=== PATIENT | female | born 1955 | race Caucasian/White ===

== ENCOUNTER → 2021-04-09 12:33 | Outpatient (CLI) | payer MEDICARE, OTHER, SELFPAY | PROVIDERS: PCP Internal Medicine; Referring Provider Internal Medicine; Visit Provider Internal Medicine | DX: Z78.0 Asymptomatic menopausal state (principal); M85.88 Other specified disorders of bone density and structure, other site | CPT/HCPCS: 77080 ==

== ENCOUNTER → 2021-04-27 14:49 | Outpatient (CLI) | payer MEDICARE, OTHER, SELFPAY ==
--- NOTE | 2021-04-27 14:51 | DI.MG.S_ITS ---
BILATERAL DIGITAL SCREENING MAMMOGRAM 3D/2D WITH CAD: 04/27/2021 CLINICAL: Routine screening. Family history of breast cancer. Comparison is made to exams dated: 06/15/2016 mammogram, 06/23/2015 mammogram, and 08/29/2013 mammogram - outside location. There are scattered fibroglandular elements in both breasts. Current study was also evaluated with a Computer Aided Detection (CAD) system. There are benign calcifications in the left breast. No significant masses, calcifications, or other findings are seen in either breast. There has been no significant interval change. IMPRESSION: BENIGN There is no mammographic evidence of malignancy. A 1 year screening mammogram is recommended. This exam was interpreted at Station ID: [id number]. NOTE: For mammograms, a report in lay terms will be sent to the patient. Approximately 15% of breast malignancies will not be visualized mammographically. In the management of a palpable breast mass, a negative mammogram must not discourage biopsy of a clinically suspicious lesion. Electronically Signed By: Nestor [email or web address]:04/27/2021 16:33:25 letter sent: Normal Exam ACR BI-RADS Category 2: Benign Finding(s) 3342F
== END ==
PROVIDERS: PCP Internal Medicine; Referring Provider Internal Medicine; Visit Provider Internal Medicine
DX: Z12.31 Encounter for screening mammogram for malignant neoplasm of breast (principal); Z80.3 Family history of malignant neoplasm of breast
CPT/HCPCS: 77063; 77067

== ENCOUNTER 2021-06-30 13:30 | Outpatient (RCR) | payer MEDICARE, OTHER, SELFPAY ==
--- NOTE | 2021-05-13 16:17 | PT.OIE ---
Current Diagnoses Cystocele, lateral (05/13/21) Visit Care Team Role Provider Type Annmarie Waterman MD Attending Provider Physician Primary Care Provider Referring Provider Specialty: Internal Medicine Address: [address] [place] [address], [facility] Email: [email or web address] Physical Therapy Initial Evaluation PT-OP-A Visit Information Start: 05/13/21 14:20 Freq: Status: Active Protocol: Document 05/13/21 14:15 AMB (Rec: 05/13/21 16:17 AMB [email or web address]) Out-Patient Physical Therapy Visit Information Visit Information Visit Type Initial Evaluation Visit Start Time 14:15 Visit Stop Time 15:00 Total Visit Minutes 45 Visit Number 1 PT-OP-B Current Condition Start: 05/13/21 14:20 Freq: Status: Active Protocol: Document 05/13/21 14:15 AMB (Rec: 05/13/21 16:16 AMB [email or web address]) Current Condition History of Current Condition Onset Date Chronic- unsure onset Current Complaints Difficulty voiding urine History of Current Condition Pauline was having to strain to completely empty her bladder and developed hemorrhoids and then a hernia. She was also having some leaking but has since cut back on caffeine and that was really helpful. She thinks she voids every 2-3 hours and urinates for about 10-15 seconds, then stands up and gets a trickle to come out . She denies pelvic heaviness or burning with urination. Denies painful intercourse history. She denies constipation or chronic cough. Did have one vaginal delivery of a premature infant , denies prolonged pushing. Treatment Goals Patient/Caregiver Goals Feel like fully voiding bladder. Personal Factors Other Personal Factors That May Effect Hernia surgery in [place] Therapy/Recovery PT-OP-C Subjective Start: 05/13/21 14:20 Freq: Status: Active Protocol: Document 05/13/21 14:15 AMB (Rec: 05/13/21 16:16 AMB [email or web address]) Patient Questionnaires Pelvic Pain and Urgency/Frequency Patient Symptom Scale Pelvic Pain Score 4 PT-OP-I Pelvic Floor Start: 05/13/21 14:20 Freq: Status: Active Protocol: Document 05/13/21 14:15 AMB (Rec: 05/13/21 16:16 AMB [email or web address]) Pelvic Floor Assessment Urine Pelvic Floor Surgery No Urinary Symptoms Dribbling After Urination, Incomplete Emptying Leakage Size Small Voiding Frequency 2-3 hours Nocturia 0 Urine Pad Type Panty Liner Bowel Bowel Surgery No Prolapse Cystocele Grade 1 Rectocele Grade 1 Prolapse Comments Pt with significant difficulty bearing down Contraction Ability Voluntary Contraction Absent Voluntary Relaxation Weak Manual Muscle Testing Left 1 Manual Muscle Testing Right 1 Manual Muscle Testing Anterior 1 Manual Muscle Testing Posterior 1 Muscle Endurance (Seconds) 2 Number of Quick Contractions In 10 3 Seconds Comments Pelvic Floor Comments Very difficult to palpate contraction PT-OP-T Assessment and Plan Start: 05/13/21 14:20 Freq: Status: Active Protocol: Document 05/13/21 14:15 AMB (Rec: 05/13/21 16:16 AMB [email or web address]) Physical Therapy Assessment Rehab Potential Rehabilitation Potential Good Evaluation Complexity Number of Personal Factors/Comorbidities 0 Number of Body Systems Impaired 1-2 Clinical Presentation at Evaluation Stable Impairments Impairments Strength Goals Two Impairment Voiding Residential Goal (LTG) Pauline will void her bladder without feeling the need to push. LTG Duration 8 weeks One Impairment Pelvic floor strength Short Term Goal (STG) Pauline will be independent and consistent with a HEP to improve her pelvic floor strength. STG Duration 4 weeks Continuous Pickling Line Pickler Goal (LTG) Pauline will be able to contract her pelvic floor for 10 seconds in standing without compensating with other muscles. LTG Duration 8 weeks Assessment Summary Assessment Pauline attends physical therapy with difficulty voiding urine completely, she feels there is more urine to void when she is done and needs to move around on the toilet or stand, and then a little more urine exits. She does have a very small cystocele, but also very poor pelvic floor strength. She would benefit from pelvic floor physical therapy to improve her pelvic floor strength to assist with her mild prolapse, as well as instruction in behavioral changes to reduce bladder irritation. Physical Therapy Plan Frequency and Duration Frequency of Treatment 1x/Week Duration of Treatment 8 weeks Plan of Care Start Date 05/13/21 Plan of Care End Date 07/08/21 Therapeutic Interventions Therapeutic Interventions Home Exercise Program,Manual Therapy,Neuromuscular Re- education,Self-Care/Home Management,Therapeutic Activities,Therapeutic Exercises Modalities Biofeedback,Electric Stimulation Next Visit Focus/Plan Next Note Type Treatment Note Next Visit Plan start with sEMG, assess if pt ready to progress to more challenging HEP- started with quick flicks and long holds in supine
--- NOTE | 2021-05-13 16:17 | PT.OPPOC ---
Physical, Occupational & Speech Therapy At [facility] Current Diagnoses Cystocele, lateral (05/13/21) Visit Care Team Role Provider Type Annmarie Waterman MD Attending Provider Physician Primary Care Provider Referring Provider Specialty: Internal Medicine Address: [address] [place] [address], [address] Email: [email or web address] Plan Of Care PT-OP-T Assessment and Plan Start: 05/13/21 14:20 Freq: Status: Active Protocol: Document 05/13/21 14:15 AMB (Rec: 05/13/21 16:16 AMB [email or web address]) Physical Therapy Assessment Rehab Potential Rehabilitation Potential Good Evaluation Complexity Number of Personal Factors/Comorbidities 0 Number of Body Systems Impaired 1-2 Clinical Presentation at Evaluation Stable Impairments Impairments Strength Goals Two Impairment Voiding Client Application Support Specialist Goal (LTG) Pauline will void her bladder without feeling the need to push. LTG Duration 8 weeks One Impairment Pelvic floor strength Short Term Goal (STG) Pauline will be independent and consistent with a HEP to improve her pelvic floor strength. STG Duration 4 weeks [facility] Goal (LTG) Pauline will be able to contract her pelvic floor for 10 seconds in standing without compensating with other muscles. LTG Duration 8 weeks Assessment Summary Assessment Pauline attends physical therapy with difficulty voiding urine completely, she feels there is more urine to void when she is done and needs to move around on the toilet or stand, and then a little more urine exits. She does have a very small cystocele, but also very poor pelvic floor strength. She would benefit from pelvic floor physical therapy to improve her pelvic floor strength to assist with her mild prolapse, as well as instruction in behavioral changes to reduce bladder irritation. Physical Therapy Plan Frequency and Duration Frequency of Treatment 1x/Week Duration of Treatment 8 weeks Plan of Care Start Date 05/13/21 Plan of Care End Date 07/08/21 Therapeutic Interventions Therapeutic Interventions Home Exercise Program,Manual Therapy,Neuromuscular Re- education,Self-Care/Home Management,Therapeutic Activities,Therapeutic Exercises Modalities Biofeedback,Electric Stimulation Next Visit Focus/Plan Next Note Type Treatment Note Next Visit Plan start with sEMG, assess if pt ready to progress to more challenging HEP- started with quick flicks and long holds in supine Plan of Care Dates Plan of Care Start Date 05/13/21 Plan of Care End Date 07/08/21 Electronically Signed by: Ktahy Hung, PT 05/13/21 [id number] Please Sign and Return: I have reviewed this Plan of Care and certify that the skilled therapy services above are required to meet the patient?s needs. Physician Signature Date Printed Name and Credentials Clinical Instructor Signature Printed Name and Credentials
--- NOTE | 2021-05-20 15:38 | PT.OTN ---
Current Diagnoses Cystocele, lateral (05/20/21) Physical Therapy Treatment Note PT-OP-A Visit Information Start: 05/13/21 14:20 Freq: Status: Active Protocol: Document 05/20/21 13:30 AMB (Rec: 05/20/21 15:38 AMB [email or web address]) Out-Patient Physical Therapy Visit Information Visit Information Visit Type Treatment Note Visit Start Time 13:30 Visit Stop Time 14:15 Total Visit Minutes 45 Visit Number 2 PT-OP-B Current Condition Start: 05/13/21 14:20 Freq: Status: Active Protocol: Document 05/13/21 14:15 AMB (Rec: 05/13/21 16:16 AMB [email or web address]) Current Condition History of Current Condition Onset Date Chronic- unsure onset Current Complaints Difficulty voiding urine History of Current Condition Pauline was having to strain to completely empty her bladder and developed hemorrhoids and then a hernia. She was also having some leaking but has since cut back on caffeine and that was really helpful. She thinks she voids every 2-3 hours and urinates for about 10-15 seconds, then stands up and gets a trickle to come out . She denies pelvic heaviness or burning with urination. Denies painful intercourse history. She denies constipation or chronic cough. Did have one vaginal delivery of a premature , denies prolonged pushing. Treatment Goals Patient/Caregiver Goals Feel like fully voiding bladder. Personal Factors Other Personal Factors That May Effect Hernia surgery in [place] Therapy/Recovery PT-OP-C Subjective Start: 05/13/21 14:20 Freq: Status: Active Protocol: Document 05/20/21 13:30 AMB (Rec: 05/20/21 15:38 AMB [email or web address]) OP-PT Subjective Patient Comments Patient Comments Pauline is continuing to notice difficulty completely voiding bladder. Feels like exercises are going ok. PT-OP-I Pelvic Floor Start: 05/13/21 14:20 Freq: Status: Active Protocol: Document 05/13/21 14:15 AMB (Rec: 05/13/21 16:16 AMB [email or web address]) Pelvic Floor Assessment Urine Pelvic Floor Surgery No Urinary Symptoms Dribbling After Urination, Incomplete Emptying Leakage Size Small Voiding Frequency 2-3 hours Nocturia 0 Urine Pad Type Panty Liner Bowel Bowel Surgery No Prolapse Cystocele Grade 1 Rectocele Grade 1 Prolapse Comments Pt with significant difficulty bearing down Contraction Ability Voluntary Contraction Absent Voluntary Relaxation Weak Manual Muscle Testing Left 1 Manual Muscle Testing Right 1 Manual Muscle Testing Anterior 1 Manual Muscle Testing Posterior 1 Muscle Endurance (Seconds) 2 Number of Quick Contractions In 10 3 Seconds Comments Pelvic Floor Comments Very difficult to palpate contraction PT-OP-Q Treatments Start: 05/13/21 14:20 Freq: Status: Active Protocol: Document 05/20/21 13:30 AMB (Rec: 05/20/21 15:38 AMB [email or web address]) Therapeutic Exercises Supine Exercises 1 Supine Exercise Name adductor, piriformis, sktc stretches Side bilateral Sitting Exercises 1 Sitting Exercise Name roll in roll out#2 t band Side bilateral Reps/Minutes 10x3 ea Standing Exercises 2 Standing Exercise Name long hold with mini squat Comments very difficult 1 Standing Exercise Name quick flicks and long holds in standing PT-OP-T Assessment and Plan Start: 05/13/21 14:20 Freq: Status: Active Protocol: Document 05/20/21 13:30 AMB (Rec: 05/20/21 15:38 AMB [email or web address]) Physical Therapy Assessment Assessment Summary Assessment Time spent with describing anatomy of how a prolapse could make it difficult to fully void urine and pelvic floor's role in supporting bladder. Pt states it is difficult to relax pelvic floor the second time she needs to void urine, so did start with stretching. Physical Therapy Plan Next Visit Focus/Plan Next Note Type Treatment Note Next Visit Plan Follow up on roll in roll out exercises.
--- NOTE | 2021-05-27 14:33 | PT.OTN ---
Current Diagnoses Cystocele, lateral (05/27/21) Physical Therapy Treatment Note PT-OP-A Visit Information Start: 05/13/21 14:20 Freq: Status: Active Protocol: Document 05/27/21 11:15 AMB (Rec: 05/27/21 12:41 AMB [id number]) Out-Patient Physical Therapy Visit Information Visit Information Visit Type Treatment Note Visit Start Time 11:15 Visit Stop Time 12:00 Total Visit Minutes 45 Visit Number 3 PT-OP-B Current Condition Start: 05/13/21 14:20 Freq: Status: Active Protocol: Document 05/13/21 14:15 AMB (Rec: 05/13/21 16:16 AMB [email or web address]) Current Condition History of Current Condition Onset Date Chronic- unsure onset Current Complaints Difficulty voiding urine History of Current Condition Pauline was having to strain to completely empty her bladder and developed hemorrhoids and then a hernia. She was also having some leaking but has since cut back on caffeine and that was really helpful. She thinks she voids every 2-3 hours and urinates for about 10-15 seconds, then stands up and gets a trickle to come out . She denies pelvic heaviness or burning with urination. Denies painful intercourse history. She denies constipation or chronic cough. Did have one vaginal delivery of a premature infant , denies prolonged pushing. Treatment Goals Patient/Caregiver Goals Feel like fully voiding bladder. Personal Factors Other Personal Factors That May Effect Hernia surgery in [place] Therapy/Recovery PT-OP-C Subjective Start: 05/13/21 14:20 Freq: Status: Active Protocol: Document 05/27/21 11:15 AMB (Rec: 05/27/21 14:29 AMB [email or web address]) OP-PT Subjective Patient Comments Patient Comments Pt reports feeling that she has difficulty with fully voiding about 50% of the time. PT-OP-I Pelvic Floor Start: 05/13/21 14:20 Freq: Status: Active Protocol: Document 05/13/21 14:15 AMB (Rec: 05/13/21 16:16 AMB [email or web address]) Pelvic Floor Assessment Urine Pelvic Floor Surgery No Urinary Symptoms Dribbling After Urination, Incomplete Emptying Leakage Size Small Voiding Frequency 2-3 hours Nocturia 0 Urine Pad Type Panty Liner Bowel Bowel Surgery No Prolapse Cystocele Grade 1 Rectocele Grade 1 Prolapse Comments Pt with significant difficulty bearing down Contraction Ability Voluntary Contraction Absent Voluntary Relaxation Weak Manual Muscle Testing Left 1 Manual Muscle Testing Right 1 Manual Muscle Testing Anterior 1 Manual Muscle Testing Posterior 1 Muscle Endurance (Seconds) 2 Number of Quick Contractions In 10 3 Seconds Comments Pelvic Floor Comments Very difficult to palpate contraction PT-OP-Q Treatments Start: 05/13/21 14:20 Freq: Status: Active Protocol: Document 05/27/21 11:15 AMB (Rec: 05/27/21 12:41 AMB [id number]) Therapeutic Exercises Supine Exercises 3 Supine Exercise Name supine hip ER Reps/Minutes 10 Comments with PF 2 Supine Exercise Name supine march Reps/Minutes 10 Comments with PF Sitting Exercises 1 Sitting Exercise Name roll in roll out#2 t band Side bilateral Reps/Minutes 10x3 ea Standing Exercises 1 Standing Exercise Name quick flicks and long holds in standing Reps/Minutes 10 Comments vc Other Exercises 2 Other Exercise Name quadruped UE flexion Reps/Minutes 10 Comments with PF contract long hold 1 Other Exercise Name quadruped quick flicks/long holds Reps/Minutes 10 PT-OP-T Assessment and Plan Start: 05/13/21 14:20 Freq: Status: Active Protocol: Document 05/27/21 11:15 AMB (Rec: 05/27/21 12:41 AMB [id number]) Physical Therapy Assessment Goals Two Impairment Voiding Chcf Goal (LTG) Pauline will void her bladder without feeling the need to push. PROGRESS MADE: About 50% of the time this works. LTG Duration 8 weeks One Impairment Pelvic floor strength Short Term Goal (STG) Pauline will be independent and consistent with a HEP to improve her pelvic floor strength. STG Duration 4 weeks Chcf Goal (LTG) Pauline will be able to contract her pelvic floor for 10 seconds in standing without compensating with other muscles. LTG Duration 8 weeks Assessment Summary Assessment Pauline appears to be improving in sx. Denies any lumbar sx. Physical Therapy Plan Next Visit Focus/Plan Next Note Type Treatment Note Next Visit Plan If pt wants sEMG could try, otherwise continue to progress exercise
--- NOTE | 2021-06-03 16:00 | PT.OTN ---
Current Diagnoses Cystocele, lateral (06/03/21) Physical Therapy Treatment Note PT-OP-A Visit Information Start: 05/13/21 14:20 Freq: Status: Active Protocol: Document 06/03/21 14:15 AMB (Rec: 06/03/21 14:44 AMB [id number]) Out-Patient Physical Therapy Visit Information Visit Information Visit Type Treatment Note Visit Start Time 14:15 Visit Stop Time 15:00 Total Visit Minutes 45 Visit Number 4 PT-OP-B Current Condition Start: 05/13/21 14:20 Freq: Status: Active Protocol: Document 05/13/21 14:15 AMB (Rec: 05/13/21 16:16 AMB [email or web address]) Current Condition History of Current Condition Onset Date Chronic- unsure onset Current Complaints Difficulty voiding urine History of Current Condition Buddy was having to strain to completely empty her bladder and developed hemorrhoids and then a hernia. She was also having some leaking but has since cut back on caffeine and that was really helpful. She thinks she voids every 2-3 hours and urinates for about 10-15 seconds, then stands up and gets a trickle to come out . She denies pelvic heaviness or burning with urination. Denies painful intercourse history. She denies constipation or chronic cough. Did have one vaginal delivery of a premature infant , denies prolonged pushing. Treatment Goals Patient/Caregiver Goals Feel like fully voiding bladder. Personal Factors Other Personal Factors That May Effect Hernia surgery in [place] Therapy/Recovery PT-OP-C Subjective Start: 05/13/21 14:20 Freq: Status: Active Protocol: Document 05/27/21 11:15 AMB (Rec: 05/27/21 14:29 AMB [email or web address]) OP-PT Subjective Patient Comments Patient Comments Pt reports feeling that she has difficulty with fully voiding about 50% of the time. PT-OP-I Pelvic Floor Start: 05/13/21 14:20 Freq: Status: Active Protocol: Document 05/13/21 14:15 AMB (Rec: 05/13/21 16:16 AMB [email or web address]) Pelvic Floor Assessment Urine Pelvic Floor Surgery No Urinary Symptoms Dribbling After Urination, Incomplete Emptying Leakage Size Small Voiding Frequency 2-3 hours Nocturia 0 Urine Pad Type Panty Liner Bowel Bowel Surgery No Prolapse Cystocele Grade 1 Rectocele Grade 1 Prolapse Comments Pt with significant difficulty bearing down Contraction Ability Voluntary Contraction Absent Voluntary Relaxation Weak Manual Muscle Testing Left 1 Manual Muscle Testing Right 1 Manual Muscle Testing Anterior 1 Manual Muscle Testing Posterior 1 Muscle Endurance (Seconds) 2 Number of Quick Contractions In 10 3 Seconds Comments Pelvic Floor Comments Very difficult to palpate contraction PT-OP-Q Treatments Start: 05/13/21 14:20 Freq: Status: Active Protocol: Document 06/03/21 14:15 AMB (Rec: 06/04/21 14:25 AMB [email or web address]) Therapeutic Exercises Standing Exercises 4 Standing Exercise Name long holds with forward lunge mini Reps/Minutes 10 3 Standing Exercise Name long holds with sit to stand Reps/Minutes 10 2 Standing Exercise Name long hold with mini squat Comments better 1 Standing Exercise Name quick flicks and long holds in standing Reps/Minutes 10 Comments vc PT-OP-T Assessment and Plan Start: 05/13/21 14:20 Freq: Status: Active Protocol: Document 06/03/21 14:15 AMB (Rec: 06/03/21 14:44 AMB [id number]) Physical Therapy Assessment Goals Two Impairment Voiding Software Tools Developer Goal (LTG) Buddy will void her bladder without feeling the need to push. PROGRESS MADE: About 50% of the time this works. LTG Duration 8 weeks One Impairment Pelvic floor strength Short Term Goal (STG) Buddy will be independent and consistent with a HEP to improve her pelvic floor strength. STG Duration 4 weeks Chcf Goal (LTG) Buddy will be able to contract her pelvic floor for 10 seconds in standing without compensating with other muscles. LTG Duration 8 weeks Assessment Summary Assessment buddy noticing sx about 70% of the time or less. Doing well with exercises. Has difficulty gwyn pelvic floor while moving from sit to stand. Physical Therapy Plan Next Visit Focus/Plan Next Note Type Treatment Note Next Visit Plan Progress HEP with standing/ moving pelvic floor stability
--- NOTE | 2021-06-30 14:53 | PT.OTN ---
Current Diagnoses Cystocele, lateral (06/30/21) Physical Therapy Treatment Note PT-OP-A Visit Information Start: 05/13/21 14:20 Freq: Status: Active Protocol: Document 06/30/21 13:30 AMB (Rec: 06/30/21 14:50 AMB [email or web address]) Out-Patient Physical Therapy Visit Information Visit Information Visit Type Discharge Summary Visit Start Time 13:30 Visit Stop Time 14:15 Total Visit Minutes 45 Visit Number 5 PT-OP-B Current Condition Start: 05/13/21 14:20 Freq: Status: Active Protocol: Document 05/13/21 14:15 AMB (Rec: 05/13/21 16:16 AMB [email or web address]) Current Condition History of Current Condition Onset Date Chronic- unsure onset Current Complaints Difficulty voiding urine History of Current Condition Pauline was having to strain to completely empty her bladder and developed hemorrhoids and then a hernia. She was also having some leaking but has since cut back on caffeine and that was really helpful. She thinks she voids every 2-3 hours and urinates for about 10-15 seconds, then stands up and gets a trickle to come out . She denies pelvic heaviness or burning with urination. Denies painful intercourse history. She denies constipation or chronic cough. Did have one vaginal delivery of a premature , denies prolonged pushing. Treatment Goals Patient/Caregiver Goals Feel like fully voiding bladder. Personal Factors Other Personal Factors That May Effect Hernia surgery in [place] Therapy/Recovery PT-OP-C Subjective Start: 05/13/21 14:20 Freq: Status: Active Protocol: Document 06/30/21 13:30 AMB (Rec: 06/30/21 14:50 AMB [email or web address]) OP-PT Subjective Patient Comments Patient Comments Feeling about 85% better, doing exercises consistently PT-OP-I Pelvic Floor Start: 05/13/21 14:20 Freq: Status: Active Protocol: Document 05/13/21 14:15 AMB (Rec: 05/13/21 16:16 AMB [email or web address]) Pelvic Floor Assessment Urine Pelvic Floor Surgery No Urinary Symptoms Dribbling After Urination, Incomplete Emptying Leakage Size Small Voiding Frequency 2-3 hours Nocturia 0 Urine Pad Type Panty Liner Bowel Bowel Surgery No Prolapse Cystocele Grade 1 Rectocele Grade 1 Prolapse Comments Pt with significant difficulty bearing down Contraction Ability Voluntary Contraction Absent Voluntary Relaxation Weak Manual Muscle Testing Left 1 Manual Muscle Testing Right 1 Manual Muscle Testing Anterior 1 Manual Muscle Testing Posterior 1 Muscle Endurance (Seconds) 2 Number of Quick Contractions In 10 3 Seconds Comments Pelvic Floor Comments Very difficult to palpate contraction PT-OP-Q Treatments Start: 05/13/21 14:20 Freq: Status: Active Protocol: Document 06/30/21 13:30 AMB (Rec: 06/30/21 14:50 AMB [email or web address]) Therapeutic Exercises Standing Exercises 4 Standing Exercise Name long holds with forward lunge mini Reps/Minutes 10 3 Standing Exercise Name long holds with sit to stand Reps/Minutes 10 2 Standing Exercise Name long hold with mini squat Comments better 1 Standing Exercise Name quick flicks and long holds in standing Reps/Minutes 10 Comments vc Other Exercises 2 Other Exercise Name quadruped UE flexion, LE extension Reps/Minutes 10 Comments with PF contract long hold 1 Other Exercise Name quadruped quick flicks/long holds Reps/Minutes 10 PT-OP-T Assessment and Plan Start: 05/13/21 14:20 Freq: Status: Active Protocol: Document 06/30/21 13:40 AMB (Rec: 06/30/21 14:39 AMB [id number]) Physical Therapy Assessment Goals Two Impairment Voiding Senior Living Goal (LTG) Pauline will void her bladder without feeling the need to push. PROGRESS MADE: Morning needs to void multiple times. LTG Duration 8 weeks One Impairment Pelvic floor strength Short Term Goal (STG) Pauline will be independent and consistent with a HEP to improve her pelvic floor strength. STG Duration MET Senior Living Goal (LTG) Pauline will be able to contract her pelvic floor for 10 seconds in standing without compensating with other muscles. LTG Duration MET Assessment Summary Assessment Pauline is feeling like she is well on her way to improving and is ready to be discharged. She has improved in her ability to contract her pelvic floor and this has helped her cystocele which was making it more difficult for her to fully void, she continues to have mild sx early in the morning, but otherwise feels ready to be discharged and continue on with her exercise independently. Physical Therapy Plan Discharge Physical Therapy Discharge Reasons Goals Met
== END 2021-07-01 10:37 | disposition home or self-care (01) ==
LOC: PHYS 13:30
PROVIDERS: PCP Internal Medicine; Referring Provider Internal Medicine; Visit Provider Internal Medicine
DX: N81.12 Cystocele, lateral (principal)
CPT/HCPCS: 97110; 97161

== ENCOUNTER → 2023-03-30 11:14 | Outpatient (CLI) | payer MEDICARE, OTHER, SELFPAY ==
--- NOTE | 2023-03-30 | DI.MG.S_ITS ---
BILATERAL DIGITAL SCREENING MAMMOGRAM 3D/2D WITH CAD: 03/30/2023 CLINICAL: Routine screening. Family history of breast cancer. Comparison is made to exams dated: 04/27/2021 mammogram - [facility], 06/15/2016 mammogram, and 06/23/2015 mammogram - outside location. There are scattered areas of fibroglandular density in both breasts (category b / 25%-50% glandular tissue). Current study was also evaluated with a Computer Aided Detection (CAD) system. There are benign calcifications in the left breast. No significant masses, calcifications, or other findings are seen in either breast. There has been no significant interval change. IMPRESSION: BENIGN There is no mammographic evidence of malignancy. A 1 year screening mammogram is recommended. Based on the Tyrer Cuzick model (a risk assessment model) the patient's lifetime risk is 8.8% and her 10 year risk is 4.6%. According to the ACR, ACS, and NCCN guidelines, an annual breast MRI exam along with mammogram is recommended if the patient's lifetime risk is 20% or greater. This exam was interpreted at Station ID: [id number]. NOTE: For mammograms, a report in lay terms will be sent to the patient. Approximately 15% of breast malignancies will not be visualized mammographically. In the management of a palpable breast mass, a negative mammogram must not discourage biopsy of a clinically suspicious lesion. Electronically Signed By: Leslie pink/gurjit:03/30/2023 14:33:45 letter sent: Normal Exam ACR BI-RADS Category 2: Benign Finding(s) [id number]
== END ==
PROVIDERS: PCP Internal Medicine; Referring Provider Internal Medicine; Visit Provider Internal Medicine
DX: Z12.31 Encounter for screening mammogram for malignant neoplasm of breast (principal)
CPT/HCPCS: 77063; 77067

== ENCOUNTER → 2024-04-19 14:31 | Outpatient (CLI) | payer MEDICARE, OTHER, SELFPAY ==
--- NOTE | 2024-04-19 14:32 | DI.MG.S_ITS ---
BILATERAL DIGITAL SCREENING MAMMOGRAM 3D/2D WITH CAD: 04/19/2024 CLINICAL: Routine screening. Family history of breast cancer. Comparison is made to exams dated: 03/30/2023 mammogram, 04/27/2021 mammogram - [facility], and 06/15/2016 mammogram - outside location. There are scattered areas of fibroglandular density in both breasts (category b / 25%-50% glandular tissue). Current study was also evaluated with a Computer Aided Detection (CAD) system. There are benign calcifications in both breasts. No significant masses, calcifications, or other findings are seen in either breast. There has been no significant interval change. IMPRESSION: BENIGN There is no mammographic evidence of malignancy. A 1 year screening mammogram is recommended. Based on the Tyrer Cuzick model (a risk assessment model) the patient's lifetime risk is 8.3% and her 10 year risk is 4.6%. According to the ACR, ACS, and NCCN guidelines, an annual breast MRI exam along with mammogram is recommended if the patient's lifetime risk is 20% or greater. This exam was interpreted at Station ID: [id number]. NOTE: For mammograms, a report in lay terms will be sent to the patient. Approximately 15% of breast malignancies will not be visualized mammographically. In the management of a palpable breast mass, a negative mammogram must not discourage biopsy of a clinically suspicious lesion. Electronically Signed By: Kd [email or web address]/gurjit:04/19/2024 15:15:21 letter sent: Normal Exam ACR BI-RADS Category 2: Benign Finding(s) 3342F
== END ==
PROVIDERS: PCP Internal Medicine; Referring Provider Internal Medicine; Visit Provider Internal Medicine
DX: Z12.31 Encounter for screening mammogram for malignant neoplasm of breast (principal); Z80.3 Family history of malignant neoplasm of breast; R92.323 Mammographic fibroglandular density, bilateral breasts
CPT/HCPCS: 77063; 77067

== ENCOUNTER → 2024-10-11 12:18 | Outpatient (CLI) | payer MEDICARE, OTHER, SELFPAY ==
--- NOTE | 2024-10-11 | DI.RAD.S_ITS ---
PROCEDURE: XR DEXA AXIAL SKELETON INDICATIONS: f/u on osteopenia COMPARISON: [facility], , XR DEXA AXIAL SKELETON, 04/09/2021, 12:56. FINDINGS: Lumbar Spine: Bone mineral density 0.713 g/cm2, T score -3.0, previously -2.3. Left Hip: Bone mineral density 0.686 g/cm2, T score -2.1, previously -1.7. Left Femoral Neck: Bone mineral density 0.603 g/cm2, T score -2.2, previously -1.9. Right Hip: Bone mineral density 0.751 g/cm2, T score -1.6, previously -1.3. Right Femoral Neck: Bone mineral density 0.67 g/cm2, T score -2.0, previously -1.8. Fracture Risk Calculation (when applicable): 10-year fracture risk of a major osteoporotic fracture 12 percent and of a hip fracture 2.5 percent. (T score greater or equal to -1.0 to: NORMAL) (T score from -1.1 to -2.4: OSTEOPENIA) (T score less than or equal to -2.5: OSTEOPOROSIS) IMPRESSION: 1. Osteoporosis of the lumbar spine. 2. Osteopenia of the left hip and femoral neck. 3. Osteopenia of the right hip and femoral neck. Follow-up guidelines as follows: Osteoporosis: Consider a repeat DEXA and Vertebral Fracture Assessment (VFA) exam in 2 years or sooner if medically necessary, to reassess this patient's status. Osteopenia: Consider a repeat DEXA in 2-3 years to reassess this patient's status, or if there is a new clinical indication. Normal: Consider a repeat DEXA in 5 years or sooner, or if there is a new clinical indication. All treatment decisions require clinical judgment and consideration of individual patient factors, including patient preferences, comorbidities, previous drug use, risk factors not captured in the FRAX model (e.g., frailty, falls, vitamin D deficiency, increased bone turnover, interval significant decline in bone density ) and possible under- or over-estimation of fracture risk by FRAX. In addition, the NOF Guide recommends that FDA-approved medical therapies be considered in postmenopausal women and men age >= 50 years with a: * Hip or vertebral (clinical or morphometric) fracture * T-score of <=-2.5 at the spine or hip * Ten-year fracture probability by FRAX of >= 3% for hip fracture or >=20% for major osteoporotic fracture. People with diagnosed cases of osteoporosis or at high risk for fracture should have regular bone mineral density tests. For patients eligible for Medicare, routine testing is allowed once every 2 years. The testing frequency can be increased to one year for patients who have rapidly progressing disease, those who are receiving or discontinuing medical therapy to restore bone mass, or have additional risk factors. Dictated by: Nixon Mejía M.D. on 10/12/2024 at 11:28 Approved by: Nixon Mejía M.D. on 10/12/2024 at 11:31
== END ==
PROVIDERS: PCP Internal Medicine; Referring Provider Internal Medicine; Visit Provider Internal Medicine
DX: Z78.0 Asymptomatic menopausal state (principal); M81.0 Age-related osteoporosis without current pathological fracture
CPT/HCPCS: 77080

== ENCOUNTER → 2025-05-02 13:05 | Outpatient (CLI) | payer MEDICARE, OTHER, SELFPAY ==
--- NOTE | 2025-05-02 13:06 | DI.MG.S_ITS ---
MM screening mammo BI: 05/02/2025. BI-RADS: 2 CLINICAL: 70-year old female for bilateral screening mammogram. Tyrer-Cuzick lifetime risk of 7.2%. Current reported family history of breast cancer: mother. PRIOR EXAMS 04/19/2024, 03/30/2023, 04/27/2021. MAMMOGRAPHY TECHNIQUE: 2D and 3D (tomosynthesis) digital mammographic views obtained, with additional images as needed for full coverage. Current study was also evaluated with a Computer Aided Detection (CAD) system. DENSITY B. There are scattered areas of fibroglandular density. MAMMOGRAPHY FINDINGS Bilateral: Benign-appearing calcifications noted. There are no suspicious masses, calcifications, or other findings in the breast. No significant change from comparison. IMPRESSION: * No evidence of malignancy with benign findings. RECOMMENDATIONS Bilateral * Annual screening mammography. OVERALL ASSESSMENT CATEGORY BI-RADS-2: Benign. The [employer] recommends annual screening mammography beginning at age 40 for women with average risk of breast cancer. ELECTRONICALLY SIGNED: Kahlil Calle M.D. on 05/02/2025 at 04:16:00 PM PT Interpreting Station ID: [id number]
== END ==
LOC: MAMMO 13:06
PROVIDERS: PCP Internal Medicine; Referring Provider Internal Medicine; Visit Provider Internal Medicine
DX: Z12.31 Encounter for screening mammogram for malignant neoplasm of breast (principal); Z80.3 Family history of malignant neoplasm of breast
CPT/HCPCS: 77063; 77067